=== PATIENT | male | born 1960 | race African-American/Black ===

== ENCOUNTER 2024-02-20 13:42 | Inpatient (IN) | payer OTHER ==
[2024-02-20 15:01] LABS: EOS % 1.1 % (0-4.5); HEMATOCRIT 46.4 % (35.4-49); HEMOGLOBIN 15.9 GM/dL (11.7-16.9); LYMPH % 18.7 % (8-40); MCH 32.2 pg (25.7-33.7); MCHC 34.3 g/dl (32.0-35.9); MEAN CELL VOLUME 93.9 fl (80-96); MEAN PLT VOLUME 8.6 fl (7.5-11.1); MONO % 10.9 % (3.8-10.2); NEUT % 68.3 % (42.8-82.8); PLATELET COUNT 192 10^3/uL (134-434); RBC 4.94 M/mm3 (4.00-5.60); RDW 13.3 % (11.9-15.9); WHITE BLOOD COUNT 5.4 K/mm3 (4.0-10.0)
[2024-02-20] MEDS ORDERED: niCARdipine HCL 25 MG/10 ML AMPUL IVPB ONE ×2 (15:08→15:13)
[2024-02-20 15:11] LABS: INR 1.01 (0.83-1.09); PROTHROMBIN TIME (PATIENT) 11.4 SEC (9.7-13.0)
[2024-02-20] MEDS ORDERED: dilTIAZem HCL 125 MG/25 ML - 25 ML VIAL ONE (15:11)
[2024-02-20 15:14] LABS: ACTIVATED PTT 32.5 SECONDS (25.2-36.5)
[2024-02-20] MEDS: NICARDIPINE 25 MG in DEXTROSE 5%-WATER - 240 ML IVPB SCH (15:24)
[2024-02-20 15:25] LABS: CHLORIDE 104 mmol/L (98-107); SODIUM 138 mmol/L (136-145)
[2024-02-20 15:29] LABS: ALBUMIN 3.7 g/dl (3.4-5.0); ANION GAP 9 mmol/L (4-13); CALCIUM 9.2 mg/dL (8.5-10.1); CO2 26 mmol/L (21-32)
[2024-02-20 15:30] LABS: GLUCOSE,RANDOM 80 mg/dL (74-106)
[2024-02-20 15:32] LABS: CREATININE 1.2 mg/dL (0.55-1.3)
[2024-02-20 15:33] LABS: SGPT/ALT 19 U/L (13-61)
[2024-02-20 15:34] LABS: CHOLESTEROL 186 mg/dL (50-200); TOT PROT 6.6 g/dl (6.4-8.2)
[2024-02-20 15:35] LABS: BILIRUBIN,TOTAL 0.9 mg/dL (0.2-1); LDL CHOLESTEROL (ONLY SJRH) 66 mg/dL (5-100)
[2024-02-20 15:36] LABS: ALK PHOS 91 U/L (45-117)
[2024-02-20 15:37] LABS: HDL CHOLESTEROL 99 mg/dL (40-60)
[2024-02-20 15:44] LABS: SGOT/AST 34 U/L (15-37)
[2024-02-20] MEDS: LABETALOL HCL 20 MG/4 ML VIAL IVPUSH ONE (15:45)
[2024-02-20 15:56] LABS: URINE APPEARANCE CLEAR; URINE BILIRUBIN NEGATIVE (NEGATIVE); URINE COLOR YELLOW; URINE GLUCOSE (UA) NEGATIVE (NEGATIVE); URINE KETONE TRACE (NEGATIVE); URINE LEUK ESTERASE NEGATIVE (NEGATIVE); URINE NITRITE NEGATIVE (NEGATIVE); URINE PROTEIN NEGATIVE (NEGATIVE); URINE UROBILINOGEN 0.2 mg/dL (0.2-1.0)
[2024-02-20] MEDS: SODIUM CHLORIDE 1,000 ML IV SCH (17:15)
[2024-02-20] MEDS ORDERED: LORazepam 2 MG/ML SDV VIAL IVPUSH PRN (17:38)
[2024-02-20] MEDS: FOLIC ACID 1 MG TABLET (FP) PO ONE (18:19)
[2024-02-20] MEDS: THIAMINE HCL 200 MG/2 ML VIAL IVPB SCH (18:19)
[2024-02-20] MEDS ORDERED: LABETALOL HCL 5 MG/1 ML (100MG/20 ML VIAL) ONE (18:37)
[2024-02-20] MEDS: SODIUM CHLORIDE IV SCH (18:45)
[2024-02-20] MEDS: LABETALOL HCL IV SCH (18:45)
[2024-02-20 19:04] VITALS: BMI 27.1
[2024-02-20] MEDS: MUPIROCIN 2% TOPICAL OINTMENT FOR DECOLONIZATION NS SCH (21:11)
[2024-02-20] MEDS: CHLORHEXIDINE GLUCONATE 4% CLEANSER FOR DECOLONIZATION TP SCH (21:11)
[2024-02-21 06:54] LABS: HEMATOCRIT 46.9 % (35.4-49); HEMOGLOBIN 15.2 GM/dL (11.7-16.9); MCH 31.5 pg (25.7-33.7); MCHC 32.4 g/dl (32.0-35.9); MEAN CELL VOLUME 97.3 fl (80-96); PLATELET COUNT 190 10^3/uL (134-434); RBC 4.82 M/mm3 (4.00-5.60); RDW 13.3 % (11.9-15.9); WHITE BLOOD COUNT 4.7 K/mm3 (4.0-10.0)
[2024-02-21 07:14] LABS: POTASSIUM 3.7 mmol/L (3.5-5.1)
[2024-02-21 07:19] LABS: ALBUMIN 3.4 g/dl (3.4-5.0); BLOOD UREA NITROGEN 15.3 mg/dL (7-18); CALCIUM 9.5 mg/dL (8.5-10.1); MAGNESIUM 2.3 mg/dL (1.8-2.4)
[2024-02-21 07:23] LABS: CREATININE 1.2 mg/dL (0.55-1.3); PHOSPHOROUS 3.7 mg/dL (2.5-4.9)
[2024-02-21 07:24] LABS: BILIRUBIN,TOTAL 1.2 mg/dL (0.2-1); TOT PROT 6.3 g/dl (6.4-8.2)
[2024-02-21] MEDS: ENOXAPARIN NA (PORCINE) 40 MG/0.4 ML DISP.SYRIN SQ SCH (09:50)
[2024-02-21] MEDS: LABETALOL HCL 100 MG TABLET (FP) PO SCH ×2 (11:33→21:27)
[2024-02-21] MEDS ORDERED: LORazepam 2 MG/ML SDV VIAL IVPUSH PRN ×2 (12:37→14:02)
[2024-02-21] MEDS: THIAMINE HCL 200 MG/2 ML VIAL IVPB SCH (15:20)
[2024-02-21] MEDS ORDERED: MUPIROCIN 2% TOPICAL OINTMENT FOR DECOLONIZATION NS SCH (22:00)
[2024-02-21] MEDS ORDERED: CHLORHEXIDINE GLUCONATE 4% CLEANSER FOR DECOLONIZATION TP SCH (22:00)
[2024-02-22 07:34] LABS: HEMATOCRIT 44.4 % (35.4-49); HEMOGLOBIN 15.1 GM/dL (11.7-16.9); MCH 32.7 pg (25.7-33.7); MCHC 33.9 g/dl (32.0-35.9); MEAN CELL VOLUME 96.3 fl (80-96); PLATELET COUNT 163 10^3/uL (134-434); RBC 4.61 M/mm3 (4.00-5.60); RDW 13.6 % (11.9-15.9); WHITE BLOOD COUNT 4.2 K/mm3 (4.0-10.0)
[2024-02-22 07:55] LABS: POTASSIUM 3.8 mmol/L (3.5-5.1)
[2024-02-22 07:59] LABS: BLOOD UREA NITROGEN 13.4 mg/dL (7-18)
[2024-02-22 08:00] LABS: CALCIUM 9.3 mg/dL (8.5-10.1)
[2024-02-22 08:01] LABS: ALBUMIN 3.2 g/dl (3.4-5.0)
[2024-02-22 08:03] LABS: CREATININE 1.3 mg/dL (0.55-1.3)
[2024-02-22 08:05] LABS: TOT PROT 5.8 g/dl (6.4-8.2)
[2024-02-22] MEDS: ENOXAPARIN NA (PORCINE) 40 MG/0.4 ML DISP.SYRIN SQ SCH (09:58)
[2024-02-22] MEDS: MULTIVITAMINS (DAILY MVI) TABLET (FP) PO SCH (09:58)
[2024-02-22] MEDS: ASPIRIN 81 MG CHEWABLE TABLETS PO SCH (13:57)
[2024-02-22] MEDS: amLODIPine BESYLATE 2.5 MG TABLET (FP) PO SCH (13:57)
[2024-02-23 08:27] LABS: BASO % 1.4 % (0-2.0); EOS % 7.7 % (0-4.5); HEMATOCRIT 44.4 % (35.4-49); HEMOGLOBIN 14.7 GM/dL (11.7-16.9); LYMPH % 24.1 % (8-40); MCH 32.2 pg (25.7-33.7); MCHC 33.1 g/dl (32.0-35.9); MEAN CELL VOLUME 97.3 fl (80-96); MEAN PLT VOLUME 9.1 fl (7.5-11.1); MONO % 15.1 % (3.8-10.2); NEUT % 51.7 % (42.8-82.8); PLATELET COUNT 178 10^3/uL (134-434); RBC 4.57 M/mm3 (4.00-5.60); RDW 13.4 % (11.9-15.9); WHITE BLOOD COUNT 4.5 K/mm3 (4.0-10.0)
[2024-02-23 08:47] LABS: POTASSIUM 4.1 mmol/L (3.5-5.1)
[2024-02-23 08:49] LABS: ALBUMIN 3.1 g/dl (3.4-5.0); BLOOD UREA NITROGEN 10.9 mg/dL (7-18); CALCIUM 9.3 mg/dL (8.5-10.1); MAGNESIUM 2.1 mg/dL (1.8-2.4)
[2024-02-23 08:54] LABS: BILIRUBIN,TOTAL 0.7 mg/dL (0.2-1); CREATININE 1.3 mg/dL (0.55-1.3); TOT PROT 5.9 g/dl (6.4-8.2)
[2024-02-23] MEDS: THIAMINE HCL 200 MG/2 ML VIAL IVPB SCH (09:04)
[2024-02-23] MEDS ORDERED: THIAMINE HCL 200 MG/2 ML VIAL IVPB SCH (10:00)
[2024-02-23] MEDS: amLODIPine BESYLATE 2.5 MG TABLET (FP) PO ONE (14:18)
[2024-02-23] MEDS: EMPAGLIFLOZIN (JARDIANCE) 10 MG TABLET PO SCH (14:18)
[2024-02-24 08:19] LABS: BASO % 0.9 % (0-2.0); EOS % 9.8 % (0-4.5); HEMATOCRIT 42.8 % (35.4-49); HEMOGLOBIN 14.7 GM/dL (11.7-16.9); LYMPH % 23.5 % (8-40); MCH 32.9 pg (25.7-33.7); MCHC 34.4 g/dl (32.0-35.9); MEAN CELL VOLUME 95.7 fl (80-96); MEAN PLT VOLUME 9.3 fl (7.5-11.1); NEUT % 50.8 % (42.8-82.8); PLATELET COUNT 168 10^3/uL (134-434); RBC 4.47 M/mm3 (4.00-5.60); RDW 13.6 % (11.9-15.9); WHITE BLOOD COUNT 4.5 K/mm3 (4.0-10.0)
[2024-02-24 08:53] LABS: ALBUMIN 3.3 g/dl (3.4-5.0); BLOOD UREA NITROGEN 8.9 mg/dL (7-18); CALCIUM 9.4 mg/dL (8.5-10.1); MAGNESIUM 2.2 mg/dL (1.8-2.4)
[2024-02-24 08:57] LABS: CREATININE 1.2 mg/dL (0.55-1.3)
[2024-02-24 08:58] LABS: BILIRUBIN,TOTAL 0.8 mg/dL (0.2-1)
[2024-02-24] MEDS: amLODIPine BESYLATE 5 MG TABLET (FP) PO SCH (09:01)
[2024-02-24 19:15] LABS: URINE AMPHETAMINES NEGATIVE (NEGATIVE); URINE BARBITURATES NEGATIVE (NEGATIVE)
[2024-02-24 19:16] LABS: COCAINE, UR NEGATIVE (NEGATIVE); METHADONE, UR NEGATIVE (NEGATIVE); OPIATES, URI NEGATIVE (NEGATIVE); PHENCYCLIDINE,URINE NEGATIVE (NEGATIVE)
[2024-02-24 19:19] LABS: URINE BENZODIAZEPINES NEGATIVE (NEGATIVE)
[2024-02-24] MEDS: LABETALOL HCL 200 MG TABLET (FP) PO SCH (21:04)
[2024-02-24] MEDS: MELATONIN 5 MG TABLETS PO PRN (21:04)
[2024-02-25] MEDS: EMPAGLIFLOZIN (JARDIANCE) 10 MG TABLET PO SCH (06:37)
[2024-02-25 09:00] LABS: BASO % 1.4 % (0-2.0); HEMATOCRIT 44.4 % (35.4-49); HEMOGLOBIN 14.5 GM/dL (11.7-16.9); LYMPH % 27.1 % (8-40); MCH 31.9 pg (25.7-33.7); MCHC 32.8 g/dl (32.0-35.9); MEAN CELL VOLUME 97.3 fl (80-96); MEAN PLT VOLUME 9.3 fl (7.5-11.1); MONO % 14.9 % (3.8-10.2); NEUT % 47.6 % (42.8-82.8); PLATELET COUNT 178 10^3/uL (134-434); RBC 4.56 M/mm3 (4.00-5.60); RDW 13.3 % (11.9-15.9); WHITE BLOOD COUNT 4.1 K/mm3 (4.0-10.0)
[2024-02-25 09:17] LABS: POTASSIUM 4.2 mmol/L (3.5-5.1)
[2024-02-25 09:20] LABS: ALBUMIN 3.2 g/dl (3.4-5.0); BLOOD UREA NITROGEN 10.4 mg/dL (7-18); CALCIUM 9.5 mg/dL (8.5-10.1); MAGNESIUM 2.4 mg/dL (1.8-2.4)
[2024-02-25 09:23] LABS: CREATININE 1.2 mg/dL (0.55-1.3)
[2024-02-25 09:25] LABS: BILIRUBIN,TOTAL 0.7 mg/dL (0.2-1)
[2024-02-25] MEDS: LISINOPRIL 5 MG TABLET PO ONE (14:22)
[2024-02-26 09:21] LABS: BASO % 1.3 % (0-2.0); EOS % 8.4 % (0-4.5); HEMATOCRIT 43.5 % (35.4-49); HEMOGLOBIN 14.5 GM/dL (11.7-16.9); LYMPH % 28.6 % (8-40); MCH 32.1 pg (25.7-33.7); MCHC 33.3 g/dl (32.0-35.9); MEAN CELL VOLUME 96.3 fl (80-96); MEAN PLT VOLUME 9.2 fl (7.5-11.1); MONO % 15.4 % (3.8-10.2); NEUT % 46.3 % (42.8-82.8); PLATELET COUNT 178 10^3/uL (134-434); RBC 4.52 M/mm3 (4.00-5.60); RDW 13.3 % (11.9-15.9); WHITE BLOOD COUNT 3.9 K/mm3 (4.0-10.0)
[2024-02-26 09:41] LABS: POTASSIUM 3.9 mmol/L (3.5-5.1)
[2024-02-26 09:50] LABS: ALBUMIN 3.3 g/dl (3.4-5.0)
[2024-02-26 09:51] LABS: BLOOD UREA NITROGEN 13.5 mg/dL (7-18); CALCIUM 9.4 mg/dL (8.5-10.1)
[2024-02-26 09:52] LABS: MAGNESIUM 2.4 mg/dL (1.8-2.4)
[2024-02-26 09:54] LABS: CREATININE 1.2 mg/dL (0.55-1.3)
[2024-02-26 09:55] LABS: BILIRUBIN,TOTAL 0.6 mg/dL (0.2-1)
[2024-02-27 07:42] LABS: EOS % 7.4 % (0-4.5); HEMOGLOBIN 14.2 GM/dL (11.7-16.9); LYMPH % 28.5 % (8-40); MCH 31.9 pg (25.7-33.7); MEAN CELL VOLUME 96.8 fl (80-96); MEAN PLT VOLUME 9.3 fl (7.5-11.1); MONO % 15.7 % (3.8-10.2); NEUT % 46.4 % (42.8-82.8); PLATELET COUNT 188 10^3/uL (134-434); RBC 4.44 M/mm3 (4.00-5.60); RDW 13.5 % (11.9-15.9); WHITE BLOOD COUNT 4.1 K/mm3 (4.0-10.0)
[2024-02-27 07:45] LABS: POTASSIUM 4.1 mmol/L (3.5-5.1)
[2024-02-27 07:52] LABS: CALCIUM 9.6 mg/dL (8.5-10.1)
[2024-02-27 07:53] LABS: ALBUMIN 3.4 g/dl (3.4-5.0); BLOOD UREA NITROGEN 14.4 mg/dL (7-18); MAGNESIUM 2.5 mg/dL (1.8-2.4)
[2024-02-27 07:56] LABS: CREATININE 1.3 mg/dL (0.55-1.3)
[2024-02-27 07:57] LABS: BILIRUBIN,TOTAL 0.6 mg/dL (0.2-1)
[2024-02-27 08:43] VITALS: RESP 17
[2024-02-27] MEDS ORDERED: REGADENOSON 0.4 MG/5 ML PRE-FILLED SYRINGE IVPUSH ONE (09:52)
[2024-02-27] MEDS: REGADENOSON 0.4 MG/5 ML PRE-FILLED SYRINGE IVPUSH ONE (11:25)
[2024-02-27 15:19] VITALS: BP 139/94; PULSE 69; TEMP 98.4
== END 2024-02-27 17:45 | disposition home or self-care (01) | DRG 199 ==
LOC: JER 13:42 → JERBED 16:15 → JICU 16:59 → J4S 02-21 12:29 → J4W 02-24 21:41
PROVIDERS: ADMIT Internal Medicine Pulmonary Disease
DX: I16.1 Hypertensive emergency (principal); R00.0 Tachycardia, unspecified; R29.6 Repeated falls; I11.0 Hypertensive heart disease with heart failure; I50.32 Chronic diastolic (congestive) heart failure; F10.90 Alcohol use, unspecified, uncomplicated; E51.2 Wernicke's encephalopathy; R47.81 Slurred speech; F41.8 Other specified anxiety disorders; Z91.199 Patient's noncompliance with other medical treatment and regimen due to unspecified reason
CPT/HCPCS: 0241U-QW; 36415; 70450-TC; 70496-TC; 70498-TC; 70551-TC; 78452-TC; 80053; 80061; 80307; 81003; 82550; 82553; 82962; 83036; 83735; 84100; 84439; 84443; 84484; 85025; 85027; 85610; 85730; 87086; 87481; 93005; 93010; 93017; 93306-TC; 93880-TC; 97116-GP; 97162-GP; 99291; A9502; J2785; Q9967

== ENCOUNTER 2024-08-23 19:11 | Emergency (ER) | payer OTHER ==
[2024-08-23 19:23] VITALS: BP 171/104; PULSE 58; RESP 18; TEMP 98; BMI 26.6
[2024-08-23] MEDS ORDERED: LIDOCAINE 4% PATCH TP ONE (20:04)
[2024-08-23] MEDS ORDERED: diazePAM 5 MG TABLET ONE (20:05)
[2024-08-23] MEDS ORDERED: NAPROXEN 500 MG TABLET ONE (20:05)
[2024-08-23] MEDS: NAPROXEN 500 MG TABLET PO ONE (20:08)
[2024-08-23] MEDS: diazePAM 5 MG TABLET PO ONE (20:08)
[2024-08-23] MEDS: LIDOCAINE 4% PATCH TP ONE (20:08)
[2024-08-24] MEDS ORDERED: LIDOCAINE PATCH REMOVAL MC SCH (08:00)
== END 2024-08-23 20:19 | disposition home or self-care (01) ==
LOC: JERFT 19:11
DX: M54.50 Low back pain, unspecified (principal); X50.0XXA Overexertion from strenuous movement or load, initial encounter
CPT/HCPCS: 99283-25